=== PATIENT | female | born 1930 | race Caucasian/White ===

== ENCOUNTER 2016-03-07 17:50 | Outpatient (CLI) | payer OTHER, BC ==
[~2016-03-07 17:50] MED LIST: ACETAMINOPHEN500 MG PO; ACYCLOVIR200 MG PO; BACTRIM DS1 TAB PO; CALCIUM CARBON500 MG PO; CARVEDILOL12.5 MG PO; CELEBREX200 MG PO; COLACE100 MG PO; DILTIAZEM HCL120 M2 PO; FISH OIL1000 MG PO; FUROSEMIDE20 MG PO; MAGNESIUM400 M1 PO; METAMUCIL0.52 GM PO; MYRBETRIQ50 MG PO; OMEPRAZOLE20 MG PO; POTASSIUM CHLO10 ME2 PO; PRAVASTATIN SOD20 MG PO; VITAMIN D-11000 UNIT PO; VITAMIN E PO; ZESTRIL2.5 MG PO
--- NOTE | 2016-03-07 18:44 | DIAGNOSTIC IMAGING REPORT ---
PROCEDURE: XR LUMBAR SPINE 2 OR 3 VIEWS INDICATION: Eight acute or subacute. TECHNIQUE: Three views. COMPARISON: None. FINDINGS: There is mild dextroscoliosis of the lower lumbar spine (5 degrees) and levoscoliosis of the upper lumbar spine (5 degrees). There are marked degenerative changes, disc space narrowing, and facet disease at L3-4, L4-5 L5-S1, these changes appear chronic. There is a 30% compression deformity of the superior endplate of L1 suspicious for an acute or subacute fracture. There are marked calcified atheromatous changes of the abdominal aorta. and disc space narrowing IMPRESSION: 1. Mild biconvex scoliosis of the lumbar spine with marked degenerative changes of the lower lumbar spine. 2. There is a 30% compression deformity/fracture of the L1 which appears to be acute or subacute. 3. Findings discussed with Dr. Perez.
== END 2016-03-07 23:00 ==
LOC: XR SRH 17:50
DX: M41.86 Other forms of scoliosis, lumbar region (principal); S32.010S Wedge compression fracture of first lumbar vertebra, sequela